=== PATIENT | female | born 1975 | race Caucasian/White ===

== ENCOUNTER → 2017-03-06 | Outpatient (REF) | payer OTHER | LOC: M SMT 12:59 | PROVIDERS: ATTEND Nurse Practitioner Women's Health | DX: R31.29 Other microscopic hematuria (principal) ==

== ENCOUNTER → 2017-04-03 | Outpatient (CLI) | payer OTHER ==
[~2017-04-03] MED LIST: ISOVUE-370 76% 100ML VIAL (Q9967) As Ordered ONE
--- NOTE | 2017-04-03 10:38 | REP ---
CT abdomen pelvis without and with IV contrast. After IV contrast, multiphase scanning is performed initially during the arterial phase of enhancement and later during the delayed equilibrium phase of enhancement. Comparison is a similar study dated 03/28/2016. There is no hydronephrosis. There are no renal, ureteral or bladder calculi. There are no renal masses or cysts. There are no bladder masses. The visualized lung murillo are unremarkable. The hepatic parenchyma, gallbladder, pancreas and spleen are unremarkable and unchanged. The abdominal aorta, bowel and mesentery are unremarkable and unchanged. Pelvis: There is a hysterectomy. Vaginal cuff and adnexa are unremarkable. There is no adenopathy or ascites. The pelvic bowel loops are unremarkable. Impression: No essentially negative CT study of the abdomen and pelvis without and with IV contrast. There are no renal calculi, masses or cysts. There is no hydronephrosis. There are no bladder masses or calculi. No change from the prior study. Signed by Graham Martines MD 04/03/2017 10:30 A
== END ==
LOC: M RAD 08:41
PROVIDERS: ATTEND Nurse Practitioner Women's Health
DX: R31.9 Hematuria, unspecified (principal)
CPT/HCPCS: 74178; Q9967